=== PATIENT | male | born 1930 | race Caucasian/White ===

== ENCOUNTER 2018-02-27 13:06 | Observation (INO) | payer MEDICARE ==
[~2018-02-27] VITALS: Ht 165.1 cm; Wt 81.2 kg
[~2018-02-27 13:06] MED LIST: DIGO125T PO; HYDR-3341 PO; LISI-167 PO; NADO20TA PO; QUET25TA PO; TRAZ50TA18 PO; WARF5TAB PO; WARF7.5T PO; areds PO
[2018-02-27] MEDS ORDERED: GING550C2 PO (13:20)
[2018-02-27 13:48] LABS: MEAN CORPUSCULAR HEMOGLOBIN 37.7 pg (27.5-34.5); MEAN CORPUSCULAR HGB CONC 33.3 g/dL (33.2-36.2); MEAN CORPUSCULAR VOLUME 113.5 fL (81-97); MEAN PLATELET VOLUME 7.9 fL (7.4-10.4); PLATELET COUNT 305 x10^3/uL (130-400); RED BLOOD COUNT 3.19 x10^6/uL (4.38-5.82); RED CELL DISTRIBUTION WIDTH 16.8 % (9.4-14.8)
[2018-02-27 13:51] LABS: INTERNATIONAL NORMALIZED RATIO 1.17 (0.93-1.1)
[2018-02-27 14:04] LABS: ALANINE AMINOTRANSFERASE 23 U/L (12-78); ALBUMIN 2.2 g/dL (3.4-5.0); ANION GAP 6 mmol/L (5-15); CALCIUM 7.3 mg/dL (8.5-10.1); CHLORIDE 109 mmol/L (98-107); CREATININE 0.84 mg/dL (0.7-1.3)
[2018-02-27 14:08] LABS: ALKALINE PHOSPHATASE 223 U/L (45-117); TOTAL PROTEIN 5.4 g/dL (6.4-8.2); TROPONIN I 0.053 ng/mL (0.000-0.045)
[2018-02-27 15:09] LABS: MD YES
[2018-02-27 15:11] LABS: BAND#(MANUAL) 0.54 x10^3/uL; BANDS%(MANUAL) 5 % (0-7); EOS#(MANUAL) 0.11 x10^3/uL (0.0-0.4); EOS% (MANUAL) 1 % (1-7); LYMPH#(MANUAL) 2.16 x10^3/uL (1-3.4); LYMPHS% (MANUAL) 20 % (22-44); MONOS#(MANUAL) 0.43 x10^3/uL (0.3-2.7); MONOS% (MANUAL) 4 % (2-9); MYELOCYTES# (MANUAL) 0.11 x10^3/uL (0-0); MYELOCYTES% (MANUAL) 1 % (0-0); SEG#(MANUAL) 7.45 x10^3/uL (1.8-6.8); SEGS% (MANUAL) 69 % (42-75)
[2018-02-27 15:12] LABS: <PLATELET ESTIMATE> ADEQUATE; <PLT MORPHOLOGY> NORMAL PLT MORPH; ANISOCYTOSIS 1+; OVALOCYTES 1+
[2018-02-27] MEDS ORDERED: ONDANSETRON ODT 4 MG PO PRN ×2 (15:30→17:00)
[2018-02-27] MEDS ORDERED: ONDANSETRON 2MG/ML, 2ML IVPush PRN (15:30)
[2018-02-27 16:10] LABS: MICROSCOPIC INDICATED
[2018-02-27 16:11] LABS: CULTURE INDICATED? YES
[2018-02-27] MEDS ORDERED: CEFTRIAXONE PMX 1GM/50ML 50 ML IV ONE (16:30)
[2018-02-27] MEDS ORDERED: BISACODYL 10 MG SUPP PR PRN (17:00)
[2018-02-27] MEDS ORDERED: ACETAMINOPHEN 325 MG TABLET PO PRN (17:00)
[2018-02-27] MEDS ORDERED: morphine SULFATE 10 MG/ML, 1ML IVPush PRN (17:00)
[2018-02-27] MEDS ORDERED: ENALAPRILAT 1.25 MG/ML, 2ML IVPush PRN (17:00)
[2018-02-27] MEDS ORDERED: hydrALAzine 20 MG/ML, 1ML IVPush PRN (17:00)
[2018-02-27] MEDS ORDERED: POLYETHYLENE GLYCOL 17 GM PACKET PO PRN (17:00)
[2018-02-27] MEDS ORDERED: CEFTRIAXONE PMX 1GM/50ML 50 ML ONE (17:19)
[2018-02-27] MEDS ORDERED: SODIUM CHLORIDE 0.9% 1,000 ML IV SCH (17:30)
[2018-02-27 20:25] VITALS: BP 170/89
[2018-02-27] MEDS: QUETIAPINE 25MG TABLET PO SCH (20:35)
[2018-02-27] MEDS: TRAZODONE 100MG TABLET PO SCH (20:36)
[2018-02-27] MEDS ORDERED: DOCUSATE 100 MG CAPSULE PO PRN (21:00)
[2018-02-28 00:57] VITALS: BP 151/69
[2018-02-28] MEDS: HYDROcodone/APAP 5/325 TABLET PO PRN ×2 (00:58→10:29)
[2018-02-28 06:40] VITALS: BP 117/67
[2018-02-28] MEDS: TRAZODONE 100MG TABLET PO SCH (08:44)
[2018-02-28] MEDS: QUETIAPINE 25MG TABLET PO SCH (08:44)
[2018-02-28] MEDS ORDERED: DIGOXIN 0.125 MG TABLET PO SCH (09:00)
[2018-02-28] MEDS ORDERED: LISINOPRIL 10 MG TABLET PO SCH (09:00)
[2018-02-28] MEDS ORDERED: TRAM50TA2 PO (11:55)
[2018-02-28] MEDS ORDERED: HYDR-3240 PO (11:55)
[2018-02-28] MEDS ORDERED: CEFD300C37 PO (12:00)
[2018-02-28 12:50] VITALS: BP 114/69
[2018-02-28] MEDS ORDERED: CEFTRIAXONE PMX 1GM/50ML 50 ML IV SCH (17:30)
== END 2018-02-28 14:13 ==
LOC: ED 14:41 → INTOOBSV 15:22 → EDIP 15:22 → 3NW 17:21
PROVIDERS: ADMIT Hospitalist; ATTEND Hospitalist
DX: J18.9 Pneumonia, unspecified organism (principal); I11.0 Hypertensive heart disease with heart failure; I50.9 Heart failure, unspecified; I48.91 Unspecified atrial fibrillation; N39.0 Urinary tract infection, site not specified; I45.9 Conduction disorder, unspecified; F03.90 Unspecified dementia, unspecified severity, without behavioral disturbance, psychotic disturbance, mood disturbance, and anxiety; E86.0 Dehydration; E43 Unspecified severe protein-calorie malnutrition; D75.89 Other specified diseases of blood and blood-forming organs; Z95.0 Presence of cardiac pacemaker; Z85.07 Personal history of malignant neoplasm of pancreas; Z85.46 Personal history of malignant neoplasm of prostate; W18.30XA Fall on same level, unspecified, initial encounter; Y92.009 Unspecified place in unspecified non-institutional (private) residence as the place of occurrence of the external cause
CPT/HCPCS: 36415; 70450; 71045; 72125; 80053; 80162; 81001; 84484; 85025; 85610; 87077; 87086; 87186; 93005; 96361; 96365; 96375; 97162; 97166; 99285; G0378; G8978; G8979; G8990; J0696; J2270; J7030